=== PATIENT | female | born 2000 | race Caucasian/White ===

== ENCOUNTER 2024-10-12 23:11 | Emergency (ER) | payer BC, SELFPAY ==
[2024-10-12] MEDS ORDERED: diphenhydrAMINE 50 MG/ML VIAL ONE (23:22)
== END 2024-10-13 00:54 | disposition home or self-care (01) ==
LOC: CSHERS 23:11
DX: L50.0 Allergic urticaria (principal)
CPT/HCPCS: 96372; 96374; 96375; J0169; J1200; J2919